=== PATIENT | male | born 1955 | race Hispanic/Latino ===

== ENCOUNTER 2021-02-27 08:16 | Day surgery (SDC) | payer MEDICARE ==
[2021-02-22 13:09] LABS: EOSINOPHILS % (AUTO) 6.6 % (0.0-8.0); HEMATOCRIT 41.7 % (42-54); LYMPHOCYTES % (AUTO) 26.6 % (21.0-51.0); MEAN CORPUSCULAR HEMOGLOBIN 23.1 pg (27.0-33.0); MEAN CORPUSCULAR HGB CONC 31.4 g/dL (32.0-36.0); MEAN CORPUSCULAR VOLUME 73.4 fL (79-99); MONOCYTES % (AUTO) 11.3 % (3.0-13.0); PLATELET COUNT (AUTO) 244 K/uL (130-400); RED BLOOD CELL COUNT(AUTO) 5.68 MIL/uL (4.50-6.20); WHITE BLOOD COUNT (AUTO) 5.9 K/uL (4.8-10.8)
[2021-02-22 13:35] LABS: CREATININE 1.2 mg/dL (0.5-1.5); POTASSIUM 4.1 mmol/L (3.5-5.1)
[2021-02-24 10:36] VITALS: BP 158/90
[~2021-02-27] VITALS: Ht 175.3 cm; Wt 103.4 kg
[2021-02-27] VITALS (14 sets, daily range): BP systolic 118–148; BP diastolic 78–91
[~2021-02-27 08:16] MED LIST: 0.9%NACL 1000ML 1,000 ML IV SCH
[2021-02-27] MEDS ORDERED: LACTATED RINGERS 1000ML 1,000 ML IV ONE (08:57)
[2021-02-27] MEDS: CEFAZOLIN SODIUM 1 GM VIAL IVP ONE ×2 (09:17→11:30)
[2021-02-27] MEDS ORDERED: LIDOCAINE PF 100MG/5ML (2%) SYRINGE 5ML ONE (10:41)
[2021-02-27] MEDS ORDERED: ONDANSETRON 4MG INJ ONE (10:41)
[2021-02-27] MEDS ORDERED: DEXAMETHASONE SOD PHOSPHATE 10MG/ML 1ML VIAL ONE (10:41)
[2021-02-27] MEDS ORDERED: PROPOFOL 10 MG/ML 20ML VIAL IV ONE (10:41)
[2021-02-27] MEDS ORDERED: MIDAZOLAM HCL 1 MG/ML 2ML VIAL ONE (10:42)
[2021-02-27] MEDS ORDERED: FENTANYL CITRATE PF 50 MCG/1 ML 2ML VIAL ONE (10:42)
[2021-02-27] MEDS ORDERED: MEPERIDINE-PF 25 MG/ML SYG ONE (10:46)
[2021-02-27] MEDS ORDERED: PHENYLEPHRINE HCL 10 MG/ML 1ML VIAL IV ONE (10:58)
[2021-02-27] MEDS ORDERED: BUPIVACAINE/PF 0.5% 30ML VIAL ONE (11:08)
[2021-02-27] MEDS ORDERED: BUPIVACAINE/PF 0.5% 10ML VIAL ONE (11:08)
== END 2021-02-27 13:40 | disposition home or self-care (01) ==
LOC: DAH 08:16
PROVIDERS: ATTEND Surgery
DX: D17.39 Benign lipomatous neoplasm of skin and subcutaneous tissue of other sites (principal); Z20.822 Contact with and (suspected) exposure to COVID-19; I10 Essential (primary) hypertension; Z87.891 Personal history of nicotine dependence; Z82.49 Family history of ischemic heart disease and other diseases of the circulatory system; Z82.3 Family history of stroke
CPT/HCPCS: 11406; 19120; 36415; 71045; 80048; 85025; 87635; 93005; A4215; A4221; A4222; A4223; A4452; A4600; A4663; A4930 ×2; C9803; G0168; J0690; J1100; J2001; J2175; J2250; J2370; J2405; J2704; J3010; J3490; J7120

== ENCOUNTER → 2021-06-13 | Outpatient (CLI) | payer MEDICARE ==
[~2021-06-13] MED LIST changes: -0.9%NACL 1000ML 1,000 ML IV SCH; +REGADENOSON 0.4 MG/5 ML PF SYG IVP SCH
== END | disposition home or self-care (01) ==
LOC: SHCH 08:57
PROVIDERS: ATTEND Internal Medicine
DX: R06.09 Other forms of dyspnea (principal)
CPT/HCPCS: 78452; 93017; 96374; A9500 ×2; J2785